=== PATIENT | male | born 1960 | race Caucasian/White ===

== ENCOUNTER 2022-03-17 10:15 | Emergency (ER) | payer SELFPAY ==
[2022-03-17 11:22] VITALS: BP 121/78; PULSE 98; RESP 16; TEMP 36.7; O2SAT 81
--- NOTE | 2022-03-17 11:53 | W.ED.BACK ---
HPI - Back Pain/Injury General: Chief Complaint: Back Pain/Injury Stated Complaint: back pain Time Seen by Provider: 03/17/22 10:57 History of Present Illness: Patient is a 61-year-old male comes to the ED with back pain. Patient states symptoms started approximately 5 days ago. He says symptoms started after he had lifted some heavy objects at home. He rates his pain currently a 7 out of 10 and is located on the right side of his lower back. Pain radiates down right leg. Denies any bladder or bowel incontinence, pelvic anesthesia or any weakness to lower extremities Associated symptoms: Deny abdominal pain, chills, dysuria, fatigue, fever(s), hematuria, nausea or vomiting Review of Systems Const: Denies: fever(s), chills or fatigue Eyes: Denies: change in vision or eye discomfort ENMT: Denies: throat pain, odynophagia, nasal discharge or nasal congestion Card: Denies: chest pain, palpitations, edema, swelling of feet/ankles, dyspnea on exertion or orthopnea Resp: Denies: dyspnea, productive cough or non-productive cough GI: Denies: abdominal pain, nausea, vomiting, diarrhea, constipation or hematochezia : Denies: flank pain, difficulty urinating, dysuria or hematuria Musc: Reports: back pain; Denies: neck pain or extremity swelling Skin/Breast: Denies: rash or new lesions Neuro: Denies: headache(s), numbness in extremities or weakness in extremities [facility] ED PFSH: Medical History No pertinent family history Surgical History No pertinent past surgical history Physical Exam Const: COMMON NORMALS: patient oriented x3 and alert GENERAL APPEARANCE: cooperative HENMT: COMMON NORMALS: normocephalic HEAD & SCALP: normocephalic MOUTH: Normal oral and palatal mucosa present THROAT: posterior oropharynx normal and uvula midline Eye: COMMON NORMALS: Equal, round and reactive pupils present and conjunctivae normal CONJUNCTIVA: Yes conjunctivae normal PUPIL: Yes Equal, round and reactive pupils present Neck/C-Spine: COMMON NORMALS: supple GENERAL: Yes normal visual inspection Resp: COMMON NORMALS: normal respiratory effort, No retractions, No use of accessory muscles and clear to auscultation bilaterally AUSCULTATION: clear to auscultation bilaterally Cardio: COMMON NORMALS: regular rate, regular rhythm, S1 normal heart sound present, S2 normal heart sound present, No gallops present (Cardio), No clicks present (Cardio), No murmurs present (Cardio) and Peripheral pulses 2+ throughout RATE: regular rate RHYTHM: regular rhythm HEART SOUNDS: S1 normal heart sound present and S2 normal heart sound present PERIPHERAL PULSES: Peripheral pulses 2+ throughout GI: COMMON NORMALS: Normal to inspection, nondistended, normoactive bowel sounds present, Soft to palpation, non-tender and no masses PALPATION: Yes Soft to palpation : COMMON NORMALS: Yes no CVA tenderness BLADDER/KIDNEY EXAM: Yes no CVA tenderness Back/Pelvis: COMMON NORMALS: no CVA tenderness LUMBAR SPINE/LOWER BACK: Yes pain with ROM, No lumbar spinal tenderness and Yes paraspinal muscle tenderness Lumbar paraspinal muscle tenderness: right Extremity: COMMON NORMALS: normal to inspection Neuro: COMMON NORMALS: patient oriented x3 SENSORIUM/ORIENTATION: Yes alert GAIT: Yes Normal gait present Skin: GENERAL SKIN EXAM: dry skin Course Vital Signs: Vital signs: Vital Signs Temperature 98.0 F 03/17/22 11:22 Pulse Rate 98 03/17/22 11:22 Respiratory Rate 16 03/17/22 11:22 Blood Pressure 121/78 03/17/22 11:22 Pulse Oximetry 81 L 03/17/22 11:22 MDM - Back Pain/Injury Medical Decision Making Patient is a 61-year-old male who comes in ED with lower back pain radiates down the right leg. Patient says symptoms started after he lifted some heavy objects. Denies cauda equina symptoms. He appears nontoxic in no acute distress. She has right paraspinal muscle tenderness. Rest of exam is benign. She was diagnosed with lumbar radiculopathy and given a dose of Toradol, Norflex and steroid here in the ED. She was discharged home with a prescription for Medrol Dosepak, muscle relaxer and Celebrex. Return to ED precautions given. Follow-up with PCP in the next week for reevaluation. Patient understood and agreed with plan. Discharge Plan Discharge Patient Disposition: Home Clinical Impression: Lumbar radiculopathy Condition: Stable Prescriptions: New Celebrex 100 mg capsule 100 mg PO BID PRN (Reason: pain) Qty: 30 0RF methocarbamol 750 mg tablet 750 mg PO Q8H PRN (Reason: Muscle spasms and pain) Qty: 30 0RF Medrol (Wojciech) 4 mg tablets,dose pack See Rx Instructions .ROUTE .COMPLEX Qty: 21 0RF Rx Instructions: orally per package directions Discharge Orders: Discharge ED (Routine); Ordered 03/17/22 Ordered By: Willam Del Valle Discharge Diet: Regular Discharge Activity: Increase activity as tolerated Patient Instructions: Lumbar Radiculopathy (ED) Activity Restrictions/Additional Instructions: Follow-up with medical provider as directed in the next 5 to 7 days for reevaluation. Take medications as prescribed. Apply cold pack on lower back. You can start taking your prescribed steroid tomorrow since she received a dose in the ED today. Return to the ER or your medical provider if condition worsens. Please read and understand discharge instructions. Thank you for choosing [facility] for your healthcare needs today. Please realize this is an emergency room and that we are providing you with a medical screening exam and this may not be complete and all inclusive of all the testing and or work up that you may need to determine your ailment or severity of your illness. It is very important that you follow up as instructed or that you return to the Emergency Department should you have concerns or if your condition changes or worsens in any way. Coding Level of Care Code ED [employer] for [employer] Exam Comprehensive
[2022-03-17] MEDS: ketorolac 60 mg/2 mL INJ IM (12:25)
[2022-03-17] MEDS: orphenadrine 30 mg/mL Inj 2 mL 60 MG IM (12:26)
== END 2022-03-17 12:33 | disposition home or self-care (01) ==
PROVIDERS: Emergency Provider Physician Assistant
DX: M54.16 Radiculopathy, lumbar region (principal)
CPT/HCPCS: 96372; 99284; J1885; J2360; J2930